=== PATIENT | female | born 1980 | race African-American/Black ===

== ENCOUNTER 2021-05-14 22:15 | Emergency (ER) | payer OTHER ==
[2021-05-14 22:21] VITALS: BMI 29.2
[2021-05-14] MEDS ORDERED: ACETAMINOPHEN 1000 MG/100 ML VIAL IVPB ONE (23:03)
[2021-05-14] MEDS ORDERED: LACTATED RINGERS SOLUTION 1000 ML INFUS.BAG IV ONE (23:08)
[2021-05-14] MEDS ORDERED: ACETAMINOPHEN INJECTION 100 ML IVPB ONE (23:29)
[2021-05-14 23:51] LABS: HEMOGLOBIN 12.6 GM/dL (10.7-15.3); MCH 30.1 pg (25.7-33.7); MCHC 35.1 g/dl (32.0-36.0); MEAN CELL VOLUME 85.7 fl (80-96); MEAN PLT VOLUME 9.7 fl (7.5-11.1); PLATELET COUNT 193 10^3/uL (134-434); RDW 13.6 % (11.6-15.6); WHITE BLOOD COUNT 7.2 K/mm3 (4.0-10.0)
[2021-05-14 23:54] LABS: EPI CELLS >36 /uL (0-25.1); HYALINE CASTS 1 /uL (0-3.1); PH,URINE 8.5 (5.0-8.0); URINE APPEARANCE CLEAR; URINE BACTERIA 1253 /uL (0-1359); URINE BILIRUBIN NEGATIVE (NEGATIVE); URINE COLOR YELLOW; URINE GLUCOSE (UA) NEGATIVE (NEGATIVE); URINE KETONE NEGATIVE (NEGATIVE); URINE LEUK ESTERASE 1+ (NEGATIVE); URINE NITRITE NEGATIVE (NEGATIVE); URINE PROTEIN NEGATIVE (NEGATIVE); URINE RBC 7 /uL (0-23.9); URINE UROBILINOGEN 0.2 mg/dL (0.2-1.0); URINE WBC 54 /uL (0-25.8)
[2021-05-15 00:09] LABS: ALBUMIN 4.2 g/dl (3.4-5.0); CALCIUM 8.6 mg/dL (8.5-10.1)
[2021-05-15 00:10] LABS: BLOOD UREA NITROGEN 11.7 mg/dL (7-18)
[2021-05-15 00:12] LABS: CREATININE 0.8 mg/dL (0.55-1.3)
[2021-05-15 00:14] LABS: BILIRUBIN,TOTAL 0.8 mg/dL (0.2-1); TOT PROT 7.4 g/dl (6.4-8.2)
[2021-05-15] MEDS ORDERED: KETOROLAC TROMETHAMINE 30 MG/1 ML VIAL IVPUSH ONE (01:19)
[2021-05-15] MEDS ORDERED: SODIUM CHLORIDE 0.9% 500 ML INFUS.BAG IV ONE (01:23)
[2021-05-15] MEDS ORDERED: KETOROLAC TROMETHAMINE 30 MG/1 ML VIAL ONE (01:43)
[2021-05-15] MEDS ORDERED: CEPHALEXIN MONOHYDRATE 500 MG CAPSULE (UD) PO ONE (01:46)
[2021-05-15] MEDS ORDERED: DEXAMETHASONE 4 MG TABLET (FP) PO ONE (01:48)
[2021-05-15 01:51] LABS: ANISOCYTOSIS 0; HELMET CELLS 0; HOWELL-JOLLY BODIES 0; MACROCYTOSIS 0; OVALOCYTE 0; PLATELET ESTIMATE NORMAL; ROULEAU 0; SICKELED CELLS 0; TARGET CELLS 0; TEAR DROP CELLS 0; TOXIC GRANULATION 0
[2021-05-15] MEDS ORDERED: MAGNESIUM SULF 50% (8.12 MEQ/2 ML-1 GM VIAL) IVPB ONE (02:08)
[2021-05-15] MEDS ORDERED: DEXAMETHASONE SOD PHOSPHATE 10 MG/1 ML VIAL ONE (02:18)
[2021-05-15] MEDS ORDERED: CEPHALEXIN MONOHYDRATE 500 MG CAPSULE (UD) ONE (02:18)
[2021-05-15 03:08] VITALS: TEMP 98.9
[2021-05-15 03:11] VITALS: BP 103/69; PULSE 108
== END 2021-05-15 03:13 | disposition home or self-care (01) ==
LOC: JER 22:15
PROC: 3E033NZ Introduction of Analgesics, Hypnotics, Sedatives into Peripheral Vein, Percutaneous Approach (ICD-10-PCS; principal; 2021-05-14)
PROC: 3E0333Z Introduction of Anti-inflammatory into Peripheral Vein, Percutaneous Approach (ICD-10-PCS; 2021-05-15)
PROC: 3E033GC Introduction of Other Therapeutic Substance into Peripheral Vein, Percutaneous Approach (ICD-10-PCS; 2021-05-15)
DX: J02.9 Acute pharyngitis, unspecified (principal); N30.00 Acute cystitis without hematuria
CPT/HCPCS: 36415; 80053; 81003; 84703; 85025; 87070; 87651; 87804; 93005; 93010; 96374; 96375; 99285-25; C9803; J0131; U0003; U0005

== ENCOUNTER 2022-06-12 00:25 | Emergency (ER) | payer OTHER ==
[2022-06-12 00:47] VITALS: BP 124/75; PULSE 110; RESP 20; TEMP 98.3; BMI 26.5
[2022-06-12 03:28] LABS: EPI CELLS 26 /uL (0-25.1); HYALINE CASTS 3 /uL (0-3.1); PH,URINE 5.5 (5.0-8.0); URINE APPEARANCE CLEAR; URINE BACTERIA 187 /uL (0-1359); URINE BILIRUBIN NEGATIVE (NEGATIVE); URINE COLOR YELLOW; URINE GLUCOSE (UA) NEGATIVE (NEGATIVE); URINE KETONE TRACE (NEGATIVE); URINE LEUK ESTERASE NEGATIVE (NEGATIVE); URINE NITRITE NEGATIVE (NEGATIVE); URINE PROTEIN 1+ (NEGATIVE); URINE RBC 6 /uL (0-23.9); URINE WBC 30 /uL (0-25.8)
[2022-06-12 03:41] LABS: CALCIUM 8.5 mg/dL (8.5-10.1)
[2022-06-12 03:42] LABS: ALBUMIN 3.6 g/dl (3.4-5.0); BLOOD UREA NITROGEN 15.4 mg/dL (7-18)
[2022-06-12 03:45] LABS: CREATININE 0.7 mg/dL (0.55-1.3)
[2022-06-12 03:46] LABS: TOT PROT 7.1 g/dl (6.4-8.2)
[2022-06-12 03:47] LABS: BILIRUBIN,TOTAL 0.9 mg/dL (0.2-1)
[2022-06-12] MEDS ORDERED: ONDANSETRON 4 MG/2 ML VIAL IVPB ONE (04:07)
[2022-06-12] MEDS ORDERED: SODIUM CHLORIDE 0.9% 500 ML INFUS.BAG IV ONE (04:07)
[2022-06-12] MEDS ORDERED: ONDANSETRON 4 MG/2 ML VIAL ONE (04:16)
[2022-06-12] MEDS ORDERED: FAMOTIDINE 20 MG/50 ML IVPB 20 MG/50 ML MG IVPB ONE (04:30)
[2022-06-12 04:48] LABS: BASO % 0.1 % (0-2.0); EOS % 0.2 % (0-4.5); HEMATOCRIT 38.4 % (32.4-45.2); HEMOGLOBIN 12.9 GM/dL (10.7-15.3); LYMPH % 13.5 % (8-40); MCHC 33.6 g/dl (32.0-36.0); MEAN CELL VOLUME 86.2 fl (80-96); MEAN PLT VOLUME 10.2 fl (7.5-11.1); MONO % 2.7 % (3.8-10.2); NEUT % 83.5 % (42.8-82.8); PLATELET COUNT 231 10^3/uL (134-434); RBC 4.46 M/mm3 (3.60-5.2); RDW 13.4 % (11.6-15.6); WHITE BLOOD COUNT 6.8 K/mm3 (4.0-10.0)
== END 2022-06-12 06:09 | disposition home or self-care (01) ==
LOC: JER 00:25
PROC: 3E033GC Introduction of Other Therapeutic Substance into Peripheral Vein, Percutaneous Approach (ICD-10-PCS; principal; 2022-06-12)
DX: R11.2 Nausea with vomiting, unspecified (principal); R19.7 Diarrhea, unspecified
CPT/HCPCS: 0241U-QW; 36415; 80053; 81003; 83690; 84703; 85025; 87086; 99284-25

== ENCOUNTER 2022-10-12 20:36 | Emergency (ER) | payer OTHER ==
[2022-10-12 20:44] VITALS: BP 112/80; PULSE 85; RESP 18; TEMP 98.1; BMI 28.3
[2022-10-12] MEDS ORDERED: HYDROCORTISONE 0.5% TOPICAL CREAM 30 GM TUBE TP ONE (22:27)
== END 2022-10-12 23:07 | disposition home or self-care (01) ==
LOC: JERFT 20:36
DX: R21 Rash and other nonspecific skin eruption (principal)
CPT/HCPCS: 99283-25

== ENCOUNTER 2023-03-17 11:48 | Emergency (ER) | payer OTHER ==
[2023-03-17 11:55] VITALS: BP 111/80; PULSE 84; RESP 20; TEMP 98.9; BMI 28.3
[2023-03-17] MEDS ORDERED: DIPHTH,PERTUSS(ACELL),TET 0.5 ML DISP.SYRIN IM ONE ×2 (12:36→12:39)
== END 2023-03-17 13:35 | disposition home or self-care (01) ==
LOC: JERFT 11:48
PROC: 0HQJXZZ Repair Left Upper Leg Skin, External Approach (ICD-10-PCS; principal; 2023-03-17)
PROC: 3E0234Z Introduction of Serum, Toxoid and Vaccine into Muscle, Percutaneous Approach (ICD-10-PCS; 2023-03-17)
DX: S71.112A Laceration without foreign body, left thigh, initial encounter (principal); W31.2XXA Contact with powered woodworking and forming machines, initial encounter; Y93.H2 Activity, gardening and landscaping
CPT/HCPCS: 12001-25; 90471; 90715; 99282-25

== ENCOUNTER 2023-08-03 09:36 | Emergency (ER) | payer OTHER ==
[2023-08-03 10:14] VITALS: BP 116/82; PULSE 83; RESP 18; TEMP 98; BMI 30.2
[2023-08-03] MEDS ORDERED: IBUPROFEN 600 MG TABLET (FP) PO ONE (12:40)
[2023-08-03] MEDS: PSEUDOEPHEDRINE HCL 60 MG TABLET PO ONE (12:49)
[2023-08-03] MEDS: IBUPROFEN 600 MG TABLET (FP) PO ONE (12:49)
== END 2023-08-03 12:57 | disposition home or self-care (01) ==
LOC: JERFT 09:36
DX: J40 Bronchitis, not specified as acute or chronic (principal); J32.9 Chronic sinusitis, unspecified; R05.9 Cough, unspecified; R09.81 Nasal congestion; H57.89 Other specified disorders of eye and adnexa; Z20.822 Contact with and (suspected) exposure to COVID-19
CPT/HCPCS: 0241U-QW; 71046-TC-FY; 84703; 93005; 93010; 93308; 99285-25

== ENCOUNTER 2024-06-30 09:37 | Emergency (ER) | payer OTHER ==
[2024-06-30 09:46] VITALS: BP 110/77; PULSE 87; RESP 18; TEMP 97.7; BMI 30.2
[2024-06-30 10:49] LABS: EPI CELLS 27 /uL (0-25.1); HYALINE CASTS 1 /uL (0-3.1); URINE APPEARANCE CLEAR; URINE BACTERIA 279 /uL (0-1359); URINE BILIRUBIN NEGATIVE (NEGATIVE); URINE COLOR YELLOW; URINE GLUCOSE (UA) NEGATIVE (NEGATIVE); URINE KETONE TRACE (NEGATIVE); URINE LEUK ESTERASE NEGATIVE (NEGATIVE); URINE NITRITE NEGATIVE (NEGATIVE); URINE PROTEIN TRACE (NEGATIVE); URINE RBC 8 /uL (0-23.9); URINE WBC 16 /uL (0-25.8)
[2024-06-30 10:50] LABS: HCG,QUALITATIVE URINE Negative
[2024-06-30] MEDS ORDERED: diphenhydrAMINE HCL 25 MG CAPSULE (FP) PO ONE (11:10)
[2024-06-30] MEDS: diphenhydrAMINE HCL 25 MG CAPSULE (FP) PO ONE (11:12)
[2024-06-30 11:24] LABS: BASO % 0.5 % (0-2.0); HEMATOCRIT 36.8 % (32.4-45.2); HEMOGLOBIN 12.2 GM/dL (10.7-15.3); LYMPH % 28.8 % (8-40); MCH 28.7 pg (25.7-33.7); MCHC 33.1 g/dl (32.0-36.0); MEAN CELL VOLUME 86.8 fl (80-96); MONO % 4.6 % (3.8-10.2); NEUT % 60.1 % (42.8-82.8); PLATELET COUNT 241 10^3/uL (134-434); RBC 4.24 M/mm3 (3.60-5.2); RDW 13.3 % (11.6-15.6)
[2024-06-30 11:47] LABS: POTASSIUM 3.9 mmol/L (3.5-5.1)
[2024-06-30 11:52] LABS: ALBUMIN 3.7 g/dl (3.4-5.0); BLOOD UREA NITROGEN 14.3 mg/dL (7-18); CALCIUM 8.9 mg/dL (8.5-10.1)
[2024-06-30 11:54] LABS: CREATININE 0.7 mg/dL (0.55-1.3)
[2024-06-30 11:56] LABS: BILIRUBIN,TOTAL 0.6 mg/dL (0.2-1); TOT PROT 7.2 g/dl (6.4-8.2)
[2024-06-30 14:12] LABS: HIV INTERPRETATION NEGATIVE (NEGATIVE)
== END 2024-06-30 13:21 | disposition home or self-care (01) ==
LOC: JER 09:37
DX: R94.6 Abnormal results of thyroid function studies (principal); R73.09 Other abnormal glucose; R09.81 Nasal congestion; R42 Dizziness and giddiness; R11.0 Nausea; R20.0 Anesthesia of skin; Z20.822 Contact with and (suspected) exposure to COVID-19
CPT/HCPCS: 0241U-QW; 36415; 80053; 81003; 84443; 84703; 85025; 86803; 87086; 87389; 93005; 93010; 99284-25